=== PATIENT | male | born 1945 | race Caucasian/White ===

== ENCOUNTER → 2017-04-10 | Outpatient (CLI) | payer OTHER ==
[2017-04-10] VITALS (10 sets, daily range): BP systolic 112–152; BP diastolic 48–79
[~2017-04-10] VITALS: Ht 182.9 cm; Wt 85.7 kg
[~2017-04-10] MED LIST: CIPRO500 MG PO; FLUORIDEX112 GM; PROTONIX40 M1 PO; SYNTHROID50 MCG PO; TIMOLOL GL0.5 %/5 M1 OPHTHALMIC
[2017-04-10 08:26] LABS: HEMATOCRIT 33.3 % (42.0-52.0); HEMOGLOBIN 11.7 gm/dL (14.0-18.0); MCH 32.7 pg (26.0-34.0); MCV 93.4 fL (80.0-100.0); MPV 7.5 fl. (7.2-11.1); RBC 3.57 mil/uL (4.50-6.00); RDW-CV 12.6 % (10.5-14.5); WBC 4.7 thou/uL (4.0-11.0)
[2017-04-10 08:37] LABS: INR 1.1; PROTIME 10.7 Seconds (9.20-11.50)
== END | disposition home or self-care (01) ==
LOC: M.ULTRA 07:40
PROVIDERS: Radiology Diagnostic Radiology
DX: C61 Malignant neoplasm of prostate (principal); Z79.01 Long term (current) use of anticoagulants